=== PATIENT | male | born 1995 | race Two or more races ===

== ENCOUNTER 2017-05-15 04:59 | Emergency (ER) | payer SELFPAY ==
[2017-05-15] MEDS ORDERED: Sodium Chloride 0.9% 10 ML Syringe FLUSH PRN (05:05)
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
--- NOTE | 2017-05-15 06:56 | CT ---
CT cervical spine Technique: Multiple axial sections were obtained from above C1 inferiorly to the top of T2. Reconstructed sagittal and coronal images were reviewed. Comparison: No previous cervical spine imaging. Findings: Mastoid sinuses and middle ear cavities appear clear. Posterior skull base is intact. Vertebral body heights and disc spaces are maintained. Vertebral bodies and posterior arches are intact with no fracture being seen. No bony central or bony neural foraminal stenosis is seen. No abnormal subluxation is seen on the reconstructed sagittal images. Impression: 1. No abnormality is identified on CT study of the cervical spine. Diagnostic code #1 Agree with preliminary report issued by [facility] ([facility] preliminary report dictated on 05/15/17, 6:29 AM Central Time)
--- NOTE | 2017-05-15 06:56 | CT ---
Head CT Technique: Multiple axial sections through the brain were obtained. Intravenous contrast was not utilized. Comparison: No previous intracranial imaging. Findings: Ventricles along with basal cisterns and sulci over the convexities are within normal limits for the patient's age. No abnormal parenchymal densities are seen. No evidence of intracranial hemorrhage. No midline shift or mass effect is seen. Bone window settings were reviewed which show no acute calvarial abnormality. Visualized sinuses are clear. Impression: 1. No acute intracranial abnormality is identified. Diagnostic code #1 Agree with preliminary report issued by [facility] ([facility] preliminary report dictated on 05/15/17, 6:30 AM Central Time)
== END 2017-05-15 09:38 | disposition home or self-care (01) ==
LOC: JD.ED 04:59
DX: S06.0X9A Concussion with loss of consciousness of unspecified duration, initial encounter (principal); S16.1XXA Strain of muscle, fascia and tendon at neck level, initial encounter; S80.02XA Contusion of left knee, initial encounter; V89.2XXA Person injured in unspecified motor-vehicle accident, traffic, initial encounter; Y92.410 Unspecified street and highway as the place of occurrence of the external cause
CPT/HCPCS: 36415; 70450; 72125; 80053; 83690; 85025; 99285; G0480; 99284

== ENCOUNTER 2017-12-26 09:17 | Emergency (ER) | payer OTHER ==
[2017-12-26] MEDS ORDERED: Diphtheria,Pertussis(Acell),Tetanus Vaccine 0.5 ML SDV IM ONE (09:36)
[2017-12-26] MEDS ORDERED: Lidocaine 1% 50 ML MDV INJECT ONE (09:54)
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
[2017-12-26] MEDS ORDERED: Cephalexin 500 MG Cap PO ONE (10:15)
--- NOTE | 2017-12-26 10:52 | CR ---
Right third finger: Four views of the right third finger were obtained. Diffuse soft tissue swelling is seen with soft tissue injury. No fracture or other bony abnormality is seen. Impression: 1. Soft tissue injury and swelling within the right third finger. 2. No acute bony abnormality is seen. Diagnostic code #3
== END 2017-12-26 10:40 ==
LOC: JD.ED 09:17
DX: S66.322A Laceration of extensor muscle, fascia and tendon of right middle finger at wrist and hand level, initial encounter (principal); W23.0XXA Caught, crushed, jammed, or pinched between moving objects, initial encounter; Z91.030 Bee allergy status; Z23 Encounter for immunization
CPT/HCPCS: 73140; 90471; 90715; 99284; A9270

== ENCOUNTER 2022-01-17 23:53 | Emergency (ER) | payer OTHER, BC ==
[2022-01-18] MEDS ORDERED: Acetaminophen 325 MG Tab PO ONE (01:06)
== END 2022-01-18 03:20 | disposition home or self-care (01) ==
LOC: JD.ED 23:53
DX: T22.312A Burn of third degree of left forearm, initial encounter (principal); Z88.8 Allergy status to other drugs, medicaments and biological substances; Z91.038 Other insect allergy status; X14.1XXA Other contact with hot air and other hot gases, initial encounter
CPT/HCPCS: 16020; 99283; A9270; 99282

== ENCOUNTER 2022-05-02 21:27 | Emergency (ER) | payer BC, MEDICAID, OTHER ==
[2022-05-03 02:08] LABS: ESTIMATED GFR 119 mL/min (>60)
== END 2022-05-03 03:28 | disposition home or self-care (01) ==
LOC: JD.ED 21:27
DX: K62.5 Hemorrhage of anus and rectum (principal); F17.210 Nicotine dependence, cigarettes, uncomplicated; Z91.048 Other nonmedicinal substance allergy status; Z88.8 Allergy status to other drugs, medicaments and biological substances
CPT/HCPCS: 36415; 80053; 83690; 83735; 85025; 86140; 99283